=== PATIENT | male | born 1975 | race Caucasian/White ===

== ENCOUNTER 2017-04-09 10:45 | Outpatient (CLI) | payer MEDICAID ==
[2017-04-09 18:46] LABS: HCT - HEMATOCRIT 50.1 % (42.0-52.0); HGB - HEMOGLOBIN 16.9 g/dL (14.0-18.0); MEAN CORPUSCULAR HEMOGLOBIN 30.8 pg (27.0-31.0); MEAN CORPUSCULAR HGB CONC 33.8 g/dL (32.0-36.0); MEAN CORPUSCULAR VOLUME 91.1 fL (80.0-94.0); MEAN PLATELET VOLUME 7.8 fL (7.4-11.4); RED BLOOD COUNT 5.51 10^6/uL (4.70-6.10); RED CELL DISTRIBUTION WIDTH 13.9 % (12.0-15.0); WHITE BLOOD COUNT 4.9 x10^3/uL (4.8-10.8)
[2017-04-09 19:13] LABS: ALBUMIN/GLOBULIN RATIO 1.5 (1.0-2.2); BILIRUBIN,TOTAL 0.7 mg/dL (0.2-1.0); BUN - BLOOD UREA NITROGEN 18 mg/dL (6-20); CALCIUM 9.5 mg/dL (8.5-10.3); CARBON DIOXIDE - CO2 26 mmol/L (21-32); CHLORIDE 105 mmol/L (101-111); GFR - MDRD 83 (>89); GLUCOSE 80 mg/dL (70-100); POTASSIUM 4.2 mmol/L (3.5-5.0); SODIUM 140 mmol/L (135-145); TOTAL PROTEIN 7.6 g/dL (6.7-8.2)
[2017-04-11 15:11] LABS: TEST RESULT REPORT (())
== END 2017-04-09 10:46 | disposition home or self-care (01) ==
LOC: LAB.S 10:45
PROVIDERS: ATTEND Nurse Practitioner Family
DX: F10.10 Alcohol abuse, uncomplicated (principal); Z13.0 Encounter for screening for diseases of the blood and blood-forming organs and certain disorders involving the immune mechanism; Z20.2 Contact with and (suspected) exposure to infections with a predominantly sexual mode of transmission
CPT/HCPCS: 36415; 80053; 81599; 84443; 85025; 86695; 86696; 86780; 86803; 87389; 87491; 87591

== ENCOUNTER 2017-10-24 17:12 | Outpatient (CLI) | payer MEDICAID | END 2017-10-24 17:13 | disposition EMS.NT | LOC: EMS 17:12 | PROVIDERS: ATTEND Surgery | DX: S09.90XA Unspecified injury of head, initial encounter (principal); Y00.XXXA Assault by blunt object, initial encounter; Y92.009 Unspecified place in unspecified non-institutional (private) residence as the place of occurrence of the external cause ==

== ENCOUNTER 2017-11-12 08:00 | Outpatient (CLI) | payer MEDICAID, OTHER ==
[2017-11-12 15:06] LABS: T4 (THYROXINE) 5.98 ug/dL (6.09-12.23)
[2017-11-12 15:09] LABS: THYROID STIMULATING HORMONE 1.8 uIU/mL (0.34-5.60)
== END 2017-11-12 08:01 ==
LOC: LAB.R 08:00
PROVIDERS: ATTEND Emergency Medicine
DX: E03.9 Hypothyroidism, unspecified (principal)
CPT/HCPCS: 84436; 84443

== ENCOUNTER 2019-12-25 12:50 | Outpatient (CLI) | payer MEDICAID | END 2019-12-25 12:51 | disposition critical access hospital (66) | LOC: EMS 12:50 | PROVIDERS: ATTEND Surgery | DX: R42 Dizziness and giddiness (principal); R11.2 Nausea with vomiting, unspecified; R51 Headache; R53.1 Weakness | CPT/HCPCS: A0425; A0429; A0999 ==

== ENCOUNTER 2019-12-25 13:03 | Emergency (ER) | payer MEDICAID ==
--- NOTE | 2019-12-25 13:15 | ED Physician Documentation ---
History of Present Illness - Stated complaint Stated Complaint: HEADACHE/DIZZY - History obtained from History obtained from: Patient, EMS - History of Present Illness Timing: Today (43-year-old gentleman presents by ambulance. He is somnolent so much of the history is from paramedics. Reportedly has been feeling nauseous and headachy for the last 8 hours or so. His roommate also had similar symptoms but declined transport. There was a concern about the catalytic propane heater in the house causing a carbon monoxide issue. Reportedly the patient would not let the paramedics in the house for unclear reasons though. Patient also took 2 Flexeril prior to arrival because he was feeling "tense" from his other symptoms.) Review of Systems Unable to obtain: Other (Somnolent) PD PAST MEDICAL HISTORY - Present Medications Home Medications: Ambulatory Orders Medication Instructions Recorded Confirmed Naloxone HCl [Narcan] 4 mg NS ONCE PRN #2 unit 12/25/19 - Allergies Allergies/Adverse Reactions: Allergies Allergy/AdvReac Type Severity Reaction Status Date / Time No Known Drug Allergies Allergy Verified 12/25/19 13:09 PD ED PE NORMAL - Vitals Vital signs reviewed: Yes - General General: Alert and oriented X 3, Other (He is awake and follows simple commands but is somnolent. He exhibits bruxism.) - HEENT HEENT: PERRL, EOMI - Neck Neck: Supple, no meningeal sign, No bony TTP - Cardiac Cardiac: RRR, No murmur - Respiratory Respiratory: No respiratory distress, Clear bilaterally - Abdomen Abdomen: Normal bowel sounds, Soft, Non tender - Derm Derm: Normal color, Warm and dry - Extremities Extremities: No edema, No calf tenderness / cord - Neuro Neuro: Alert and oriented X 3, No motor deficit, No sensory deficit, Normal speech Eye Opening: To Voice Motor: Obeys Commands Verbal: Confused GCS Score: 13 Results - Vitals Vitals: Vital Signs - 24 hr 12/25/19 12/25/19 13:09 14:55 Temperature 98.3 C H 36.6 C Heart Rate 72 59 L Respiratory 16 17 Rate Blood Pressure 133/79 H 119/84 H O2 Saturation 99 100 Oxygen O2 Source Room air - Labs Labs: Laboratory Tests 12/25/19 12/25/19 12/25/19 13:20 13:20 13:20 WBC 9.4 RBC 5.15 Hgb 15.5 Hct 45.1 MCV 87.6 MCH 30.1 MCHC 34.4 RDW 12.7 Plt Count 275 MPV 9.1 Neut # (Auto) 7.5 H Lymph # (Auto) 1.2 L Ware # (Auto) 0.5 Eos # (Auto) 0.1 Baso # (Auto) 0.1 Absolute Nucleated RBC 0.00 Nucleated RBC % 0.0 VBG Total Hgb 16.1 VBG Oxyhemoglobin 94 VBG Carboxyhemoglobin 1.1 VBG Methemoglobin 0.3 Sodium 141 Potassium 4.0 Chloride 107 Carbon Dioxide 27 Anion Gap 7.0 BUN 19 Creatinine 0.8 Estimated GFR (MDRD) 106 Glucose 111 H Calcium 9.3 Total Bilirubin 0.3 AST 22 ALT 20 Alkaline Phosphatase 63 Total Protein 7.1 Albumin 4.2 Globulin 2.9 Albumin/Globulin Ratio 1.4 Lipase 30 Urine Opiates Screen Ur Oxycodone Screen Urine Methadone Screen Ur Propoxyphene Screen Ur Barbiturates Screen Ur Tricyclics Screen Ur Phencyclidine Scrn Ur Amphetamine Screen U Methamphetamines Scrn U Benzodiazepines Scrn Urine Cocaine Screen U Cannabinoids Screen Ethyl Alcohol < 5.0 12/25/19 14:35 WBC RBC Hgb Hct MCV MCH MCHC RDW Plt Count MPV Neut # (Auto) Lymph # (Auto) Ware # (Auto) Eos # (Auto) Baso # (Auto) Absolute Nucleated RBC Nucleated RBC % VBG Total Hgb VBG Oxyhemoglobin VBG Carboxyhemoglobin VBG Methemoglobin Sodium Potassium Chloride Carbon Dioxide Anion Gap BUN Creatinine Estimated GFR (MDRD) Glucose Calcium Total Bilirubin AST ALT Alkaline Phosphatase Total Protein Albumin Globulin Albumin/Globulin Ratio Lipase Urine Opiates Screen POSITIVE H Ur Oxycodone Screen NEGATIVE Urine Methadone Screen NEGATIVE Ur Propoxyphene Screen NEGATIVE Ur Barbiturates Screen NEGATIVE Ur Tricyclics Screen NEGATIVE Ur Phencyclidine Scrn NEGATIVE Ur Amphetamine Screen POSITIVE H U Methamphetamines Scrn POSITIVE H U Benzodiazepines Scrn NEGATIVE Urine Cocaine Screen NEGATIVE U Cannabinoids Screen POSITIVE H Ethyl Alcohol PD MEDICAL DECISION MAKING - ED course ED course: 43-year-old gentleman presents with somnolence and feeling ill. Reportedly his roommate had the same and there was a concern for carbon monoxide. Work-up was negative including head CT, labs, carbon monoxide panel. He cleared his mental status while in the department, ambulating without difficulty. No meningismus or fever. High suspicion for illicit drugs causing this presentation as opposed to an acute medical illness. Social work saw the patient and actually arranged for him to go from here to detox. Reportedly his brother had questions about starting Suboxone in the department, but the patient is not enough of a state of withdrawal to started at this juncture. The detox facility wanted to clarify that the patient had no symptoms or findings consistent with coronavirus, there is no fevers, no cough, no symptoms that would be referrable to coronavirus. Departure - Departure Disposition: 01 Home, Self Care Clinical Impression: Confusion, Drug abuse Headache Qualifiers: Headache type: unspecified Headache chronicity pattern: acute headache Intractability: not intractable Qualified Code(s): R51 - Headache Condition: Good Record reviewed to determine appropriate education?: Yes Instructions: ED Drug Abuse General Prescriptions: Naloxone HCl [Narcan] 4 mg NS ONCE PRN #2 unit PRN Reason: drug overdose Comments: There is no evidence of a carbon monoxide causing any of your symptoms, that said, it does appear that your drug abuse probably caused some of your issues. I would recommend that you cease using all illegal drugs, they are bad for you. Return for new or worsening symptoms. Do not drive today.
[2019-12-25 13:27] LABS: BASOPHILS # (AUTO) 0.1 10^3/uL (0.0-0.1); BASOPHILS % (AUTO) 0.5 %; EOSINOPHILS # (AUTO) 0.1 10^3/uL (0.0-0.7); EOSINOPHILS % (AUTO) 0.7 %; HGB - HEMOGLOBIN 15.5 g/dL (14.0-18.0); LYMPHOCYTES # (AUTO) 1.2 10^3/uL (1.5-3.5); LYMPHOCYTES % (AUTO) 12.9 %; MEAN CORPUSCULAR HEMOGLOBIN 30.1 pg (27.0-31.0); MEAN CORPUSCULAR HGB CONC 34.4 g/dL (32.0-36.0); MEAN CORPUSCULAR VOLUME 87.6 fL (80.0-94.0); MEAN PLATELET VOLUME 9.1 fL (7.4-11.4); MONOCYTES # (AUTO) 0.5 10^3/uL (0.0-1.0); MONOCYTES % (AUTO) 5.5 %; NEUTROPHILS # (AUTO) 7.5 10^3/uL (1.5-6.6); NEUTROPHILS % (AUTO) 79.9 %; PLT - PLATELET COUNT 275 10^3/uL (130-450); RED BLOOD COUNT 5.15 10^6/uL (4.70-6.10); RED CELL DISTRIBUTION WIDTH 12.7 % (12.0-15.0); WHITE BLOOD COUNT 9.4 x10^3/uL (4.8-10.8)
[2019-12-25 13:44] LABS: ALBUMIN 4.2 g/dL (3.2-5.5); ALBUMIN/GLOBULIN RATIO 1.4 (1.0-2.2); ALKALINE PHOSPHATASE 63 IU/L (42-121); ALT ALANINE AMINOTRANSFERASE 20 IU/L (10-60); AST ASPARTATE AMINOTRANSFERASE 22 IU/L (10-42); BILIRUBIN,TOTAL 0.3 mg/dL (0.2-1.0); BUN - BLOOD UREA NITROGEN 19 mg/dL (6-20); CALCIUM 9.3 mg/dL (8.5-10.3); CARBON DIOXIDE - CO2 27 mmol/L (21-32); CHLORIDE 107 mmol/L (101-111); CREATININE 0.8 mg/dL (0.6-1.2); GLUCOSE 111 mg/dL (70-100); LIPASE 30 U/L (22-51); SODIUM 141 mmol/L (135-145); TOTAL PROTEIN 7.1 g/dL (6.7-8.2)
--- NOTE | 2019-12-25 13:50 | CT Report ---
Reason: AMS Procedure Date: 12/25/2019 Accession Number: [id number] / [id number] Procedure: CT - HEAD WO CPT Code: Final Report FULL RESULT: EXAM: CT HEAD EXAM DATE: 12/25/2019 01:32 PM. CLINICAL HISTORY: Acute mental state. COMPARISON: None. TECHNIQUE: Multiaxial CT images were obtained from the foramen magnum to the vertex. Reformats: Sagittal and coronal. IV contrast: None. In accordance with CT protocol optimization, one or more of the following dose reduction techniques were utilized for this exam: automated exposure control, adjustment of mA and/or KV based on patient size, or use of iterative reconstructive technique. FINDINGS: Parenchyma: No intraparenchymal hemorrhage. No evidence of mass, midline shift, or CT findings of infarction. Sexton-white differentiation is distinct. Extraaxial Spaces: Normal for age. No subdural or epidural collections identified. Ventricles: Normal in size and position. Sinuses and Orbits: Imaged paranasal sinuses, orbits, and mastoids show no significant abnormality. Bones: No evidence of fracture or calvarial defect. Other: None. IMPRESSION: Normal head CT. RADIA
[2019-12-25 14:39] LABS: MUDS CUTOFF CONCENTRATIONS CUTOFF CONC BELOW:
[2019-12-25 14:54] LABS: AMPHETAMINE SCREEN,URINE POSITIVE (NEGATIVE); BENZODIAZEPINES SCREEN, URINE NEGATIVE (NEGATIVE); COCAINE SCREEN URINE NEGATIVE (NEGATIVE); METHADONE SCREEN, URINE NEGATIVE (NEGATIVE); METHAMPHETAMINES SCREEN, URINE POSITIVE (NEGATIVE); OPIATE SCREEN, URINE POSITIVE (NEGATIVE); OXYCODONE SCREEN, URINE NEGATIVE (NEGATIVE); PROPOXYPHENE SCREEN, URINE NEGATIVE (NEGATIVE); TRICYCLIC ANTIDEPRESSANT,URINE NEGATIVE (NEGATIVE)
[2019-12-25 16:18] VITALS: BP 117/80
== END 2019-12-25 16:18 | disposition home or self-care (01) ==
LOC: EDUNIT# → ED 13:03
DX: R41.0 Disorientation, unspecified (principal); F19.10 Other psychoactive substance abuse, uncomplicated; R51 Headache
CPT/HCPCS: 36415; 70450; 80053; 80306; 80320; 82375; 83690; 85025; 99281; 99284

== ENCOUNTER 2021-06-13 17:44 | Emergency (ER) | payer MEDICAID ==
[2021-06-13 17:57] VITALS: BP 148/85
--- NOTE | 2021-06-13 18:10 | ED Physician Documentation ---
PD HPI SKIN - Stated complaint Stated Complaint: RT KNEE INFECTION - Chief complaint Chief Complaint: Wound - History obtained from History obtained from: Patient - History of Present Illness Timing - onset: How many days ago (few) Timing - duration: Days (few) Timing - details: Abrupt onset, Still present Location: RLE (anterior infrapatellar) Quality / character: Painful, Discolored (red), Swelling. No: Draining Associated symptoms: No: Fever, Myalgias Contributing factors: No: Insect bite /sting Similar symptoms before: Has not had sx before Review of Systems Constitutional: denies: Fever, Chills Neurologic: denies: Focal weakness, Numbness PD PAST MEDICAL HISTORY - Past Medical History Endocrine/Autoimmune: HyPOthyroidism, Other GI: None : None Psych: None Musculoskeletal: None - Past Surgical History Past Surgical History: No - Present Medications Home Medications: Ambulatory Orders Medication Instructions Recorded Confirmed Naloxone HCl [Narcan] 4 mg NS ONCE PRN #2 unit 12/25/19 Doxycycline Hyclate 100 mg PO BID 7 Days #14 cap 06/13/21 Mupirocin 2% Oint [Bactroban 2% 1 applic TOP TID #15 gm 06/13/21 Oint] - Allergies Allergies/Adverse Reactions: Allergies Allergy/AdvReac Type Severity Reaction Status Date / Time No Known Drug Allergies Allergy Verified 12/25/19 13:09 - Social History Does the pt smoke?: No Smoking Status: Never smoker Does the pt drink ETOH?: Yes - Immunizations Immunizations are current?: Yes PD ED PE NORMAL - Vitals Vital signs reviewed: Yes - General General: Alert and oriented X 3, No acute distress, Well developed/nourished - Derm Derm: Normal color, Warm and dry - Extremities Extremities: Other (right anterior lower leg in infrapatellar area with skin redness, small scabbed 2-3 mm lesion. Red with warmth, but no fluctuance. No effusion/tenderness of the knee joint nor prepatellar area itself. ) - Neuro Neuro: No motor deficit, No sensory deficit Results - Vitals Vitals: Vital Signs - 24 hr 06/13/21 17:55 Temperature 36.6 C Heart Rate 74 Respiratory 18 Rate Blood Pressure 148/85 H O2 Saturation 99 Oxygen O2 Source Room air PD MEDICAL DECISION MAKING - ED course Complexity details: considered differential (skin infection without abscess yet, but does have staph looking appearance. ), d/w patient Departure - Departure Disposition: 01 Home, Self Care Clinical Impression: Infection of knee Condition: Stable Record reviewed to determine appropriate education?: Yes Instructions: ED Staph Infec Abx Tx Only Prescriptions: Mupirocin 2% Oint [Bactroban 2% Oint] 1 applic TOP TID #15 gm Doxycycline Hyclate 100 mg PO BID 7 Days #14 cap Comments: Cleanse area with soap and water 2-3 times a day. You can also apply warm compresses to the area to help loosen the wound edge and see if it promotes drainage. Mupirocin antibiotic ointment after that to the area. Doxycycline antibiotic twice daily for the next 5 to 7 days till the seems fully cleared. Tylenol or ibuprofen as needed for pains. I would anticipate improvement over the next few days. Recheck if not better and return if worsening. Transmitted your prescriptions to [facility] in [place]. Discharge Date/Time: 06/13/21 18:35
[2021-06-13] MEDS ORDERED: MUPIROCIN 2% OINT 1 GM TOP STA (18:19)
[2021-06-13] MEDS ORDERED: DOXYCYCLINE 100 MG TABLET PO STA (18:19)
[2021-06-13] MEDS ORDERED: IBUPROFEN 600 MG TABLET PO STA (18:19)
== END 2021-06-13 18:35 | disposition home or self-care (01) ==
LOC: ED 17:44
DX: M00.9 Pyogenic arthritis, unspecified (principal)
CPT/HCPCS: 99282; 99283; A9270

== ENCOUNTER 2021-08-15 00:26 | Emergency (ER) | payer MEDICAID ==
[2021-08-15 00:36] VITALS: BP 127/86
[2021-08-15] MEDS ORDERED: BUFFERED LIDOCAINE 10 ML SYRINGE IU ONE (00:39)
[2021-08-15] MEDS ORDERED: BACITRACIN ZINC OINT 1 PACKET TOP STA (01:02)
--- NOTE | 2021-08-15 01:07 | ED Physician Documentation ---
PD HPI SKIN - Stated complaint Stated Complaint: R LEG INJ - Chief complaint Chief Complaint: Laceration - History obtained from History obtained from: Patient - Additional information Additional information: Patient comes emergency department chief complaint of right leg laceration after tripping over a lawnmower. Patient states he had an old lawnmower that he had dragged from the side of his yard and put out to get rid of. Patient states he forgot that he had moved the lawnmower and as he was running across his yard in the dark, he ran into the lawnmower and tripped over it. He struck his right issue Laud and edge of the lawnmower, he thinks, and realized that he had cut his leg. No other injuries or complaints. Patient states his last tetanus shot was a year and a half ago. Review of Systems Ten Systems: 10 systems reviewed and negative Constitutional: reports: Reviewed and negative Eyes: reports: Reviewed and negative Ears: reports: Reviewed and negative Nose: reports: Reviewed and negative Throat: reports: Reviewed and negative Cardiac: reports: Reviewed and negative Respiratory: reports: Reviewed and negative GI: reports: Reviewed and negative : reports: Reviewed and negative Skin: reports: Laceration (s) Musculoskeletal: reports: Reviewed and negative Neurologic: reports: Reviewed and negative Psychiatric: reports: Reviewed and negative Endocrine: reports: Reviewed and negative Immunocompromised: reports: Reviewed and negative PD PAST MEDICAL HISTORY - Past Medical History Endocrine/Autoimmune: HyPOthyroidism, Other GI: None : None Psych: None Musculoskeletal: None - Past Surgical History Past Surgical History: No - Present Medications Home Medications: Ambulatory Orders Medication Instructions Recorded Confirmed Naloxone HCl [Narcan] 4 mg NS ONCE PRN #2 unit 12/25/19 Doxycycline Hyclate 100 mg PO BID 7 Days #14 cap 06/13/21 Mupirocin 2% Oint [Bactroban 2% 1 applic TOP TID #15 gm 06/13/21 Oint] - Allergies Allergies/Adverse Reactions: Allergies Allergy/AdvReac Type Severity Reaction Status Date / Time No Known Drug Allergies Allergy Verified 08/15/21 00:32 - Social History Does the pt smoke?: No Smoking Status: Never smoker Does the pt drink ETOH?: Yes - Immunizations Immunizations are current?: Yes PD ED PE NORMAL - Vitals Vital signs reviewed: Yes - General General: Alert and oriented X 3, No acute distress, Well developed/nourished - HEENT HEENT: Atraumatic, PERRL, EOMI, Moist mucous membranes - Neck Neck: Supple, no meningeal sign - Cardiac Cardiac: Strong equal pulses - Respiratory Respiratory: No respiratory distress - Derm Derm: Normal color, Warm and dry, No rash, Other (2.5 cm linear laceration obliquely across right anterior tibial area. Bleeding controlled. No foreign body. No bony depression) - Extremities Extremities: No deformity, No edema, No calf tenderness / cord, Other (No bony depression.) - Neuro Neuro: Alert and oriented X 3, assembler bonding 2-12 intact, Normal speech, Other (Grossly intact.) - Psych Psych: Normal mood, Normal affect Results - Vitals Vitals: Vital Signs - 24 hr 08/15/21 00:31 Temperature 36.8 C Heart Rate 107 H Respiratory 18 Rate Blood Pressure 127/86 H O2 Saturation 100 Oxygen O2 Source Room air Procedures - Laceration (location) Right lower leg Length in cm: 2.5 Wound type: Linear, Into subcut fat, Clean Neurovascular status: Sensory intact, Motor intact Anesthesia: Lidocaine 2% with epi Wound preparation: Hibiclens, Irrigated copiously NS, Wound explored, To the base Skin layer closure: Nylon, Interrupted, Size #-0 - enter number (4.0), Sutures - enter # (5) Other: Patient tolerated well, No complications, Neurovascular intact, Dressing applied, Tetanus UTD PD MEDICAL DECISION MAKING - ED course Complexity details: considered differential, d/w patient ED course: Laceration was repaired as above. We have discussed wound care at home, as well as the need to have sutures removed in 7 days. Discussed symptoms which would indicate infection and should prompt immediate reevaluation. Departure - Departure Disposition: 01 Home, Self Care Clinical Impression: Laceration Condition: Stable Instructions: ED Laceration Ext Sutr Stap Tape Comments: Please keep the wound generally clean and dry. You may let water and soap run over the wound, but please do not rub, scrub, or immerse the wound until sutures are removed. The sutures should be kept in for about 7 days, After which time you should follow-up with your doctor or urgent care/walk-in clinic to have them removed. If you cannot be seen in any of these settings, you may return to the emergency department for wound check and suture removal. If prior to that time, you develop redness and thick, swollen skin that is spreading progressively away from your wound, or if the wound splits open and looks "mushy" then you should seek medical evaluation at that time for possible infection. Discharge Date/Time: 08/15/21 01:27
== END 2021-08-15 01:27 | disposition home or self-care (01) ==
LOC: ED 00:26
DX: S81.811A Laceration without foreign body, right lower leg, initial encounter (principal); W22.8XXA Striking against or struck by other objects, initial encounter; Y93.02 Activity, running; Y92.007 Garden or yard of unspecified non-institutional (private) residence as the place of occurrence of the external cause
CPT/HCPCS: 12001; 99283

== ENCOUNTER 2023-05-14 18:49 | Emergency (ER) | payer MEDICAID ==
[2023-05-14 19:08] VITALS: BP 129/76; O2SAT 97
--- NOTE | 2023-05-14 20:26 | ED Physician Documentation ---
PD HPI SKIN - Stated complaint Stated Complaint: SCALP INFECTION - Chief complaint Chief Complaint: Wound - History obtained from History obtained from: Patient - Additional information Additional information: 47-year-old male presents by private vehicle from home for evaluation of the wound on his scalp that has been present for several days. Patient states that previously there seem to be a pouch on the back of his head, and recently it became more painful and it started draining. He is concerned because the wound is close to his brain and he wanted to be evaluated. Denies fevers or chills, headaches, vision changes, any other complaints at this time. Review of Systems Constitutional: denies: Fever, Chills Eyes: denies: Loss of vision, Decreased vision, Photophobia Skin: reports: Lesions. denies: Rash, Abrasion (s), Laceration (s) Neurologic: denies: Generalized weakness, Focal weakness, Numbness, Difficulty speaking, Near syncope, Confused, Altered mental status, Headache, Head injury PD PAST MEDICAL HISTORY - Past Medical History Endocrine/Autoimmune: HyPOthyroidism, Other GI: None : None Psych: None Musculoskeletal: None - Past Surgical History Past Surgical History: No - Present Medications Home Medications: Ambulatory Orders Medication Instructions Recorded Confirmed Doxycycline Hyclate 100 mg PO BID #14 tab 05/14/23 - Allergies Allergies/Adverse Reactions: Allergies Allergy/AdvReac Type Severity Reaction Status Date / Time No Known Drug Allergies Allergy Verified 05/14/23 19:00 - Social History Does the pt smoke?: No Smoking Status: Never smoker Does the pt drink ETOH?: Yes - Immunizations Immunizations are current?: Yes PD ED PE NORMAL - Vitals Vital signs reviewed: Yes - General General: Alert and oriented X 3, No acute distress, Well developed/nourished - HEENT HEENT: Atraumatic, PERRL, EOMI, Other (wound on occipital scalp) - Neck Neck: Supple, no meningeal sign - Cardiac Cardiac: RRR - Abdomen Abdomen: Soft, Non tender, Non distended - Derm Derm: Warm and dry, Other (infected cystic lesion on occipital scalp with purulent drainage) - Extremities Extremities: No deformity, No tenderness to palpate, Normal ROM s pain - Neuro Neuro: Alert and oriented X 3, die maker apprentice 2-12 intact, No motor deficit, Normal speech - Psych Psych: Normal mood, Normal affect Results - Vitals Vitals: Vital Signs - 24 hr 05/14/23 18:57 Temperature 36.7 C Heart Rate 75 Respiratory 16 Rate Blood Pressure 129/76 O2 Saturation 97 Oxygen O2 Source Room air PD Medical Decision Making - ED course Complexity details: re-evaluated patient, considered differential, d/w patient ED course: Well-appearing patient with cystic lesion on his posterior scalp that appears to have superimposed infection. Wound is already open to the surface and purulent material is able to be expressed with light pressure. No indication for further incision and drainage. Patient counseled to avoid manipulation of the infected area and to apply warm compresses several times daily. He was counseled to keep it clean dry dressing over the area to avoid worsening infection. Antibiotics sent to pharmacy of choice. Patient counseled that he may need to have cyst removed in the future once infection is controlled. He was referred to primary care for follow up. Clean bandage applied to scalp prior to DC Departure - Departure Disposition: 01 Home, Self Care Clinical Impression: Scalp cyst Cellulitis Qualifiers: Site of cellulitis: head Qualified Code(s): L03.811 - Cellulitis of head [any part, except face] Condition: Stable Instructions: Cellulitis Dc Prescriptions: Doxycycline Hyclate 100 mg PO BID #14 tab Comments: WEAR A CLEAN DRESSING WHEN WEARING A HAT OR COVERING YOUR HEAD. AVOID SQUEEZING OR MANIPULATING THE AREA. YOU MAY APPLY WARM COMPRESSES TO THE AREA TO HELP EXPRESS ANY PUS. FOLLOW UP WITH PRIMARY CARE PHYSICIAN. TAKE ALL ANTIBIOTICS. Forms: PCP List Discharge Date/Time: 05/14/23 20:46
== END 2023-05-14 20:46 | disposition home or self-care (01) ==
LOC: ED 18:49
DX: L03.811 Cellulitis of head [any part, except face] (principal)
CPT/HCPCS: 99282; 99283

== ENCOUNTER 2024-01-17 16:41 | Outpatient (CLI) | payer MEDICAID ==
--- NOTE | 2024-01-18 14:55 | XRAY Report ---
PROCEDURE: Tib/Fib RT INDICATIONS: RIGHT LEG CELLULITIS TECHNIQUE: 2 views of the tibia and fibula were acquired. COMPARISON: None. FINDINGS: Bones: No fractures or dislocations. No suspicious bony lesions. No osseous erosions. Soft tissues: No suspicious soft tissue calcifications or masses. Route soft tissue prominence. IMPRESSION: No visualized acute fracture or dislocation. However, occult injury cannot be excluded. Recommend gary rt interval imaging follow-up in 7-10 days as clinically indicated for additional evaluation. No suspicious osseous lesions. Reviewed by: Lorraine Pérez MD on 01/18/2024 2:54 PM PDT Approved by: Lorraine Pérez MD on 01/18/2024 2:54 PM PDT Station ID: [id number]
== END 2024-01-17 23:59 | disposition home or self-care (01) ==
LOC: DI.S 16:41
PROVIDERS: ATTEND Emergency Medicine
DX: L03.115 Cellulitis of right lower limb (principal)

== ENCOUNTER 2024-01-17 17:20 | Outpatient (CLI) | payer MEDICAID | END 2024-01-17 22:23 | disposition critical access hospital (66) | LOC: EMS 17:20 | DX: T24.001A Burn of unspecified degree of unspecified site of right lower limb, except ankle and foot, initial encounter (principal); X08.8XXA Exposure to other specified smoke, fire and flames, initial encounter; R53.83 Other fatigue; R11.0 Nausea | CPT/HCPCS: A0425; A0429; A0999 ==

== ENCOUNTER 2024-01-17 17:55 | Emergency (ER) | payer MEDICAID ==
[2024-01-17 18:34] LABS: BASOPHILS # (AUTO) 0.1 10^3/uL (0.0-0.1); EOSINOPHILS # (AUTO) 0.1 10^3/uL (0.0-0.7); HCT - HEMATOCRIT 40.6 % (42.0-52.0); HGB - HEMOGLOBIN 13.2 g/dL (14.0-18.0); LYMPHOCYTES % (AUTO) 14.5 %; MEAN CORPUSCULAR HGB CONC 32.5 g/dL (32.0-36.0); MEAN CORPUSCULAR VOLUME 89.2 fL (80.0-94.0); MEAN PLATELET VOLUME 10.2 fL (7.4-11.4); MONOCYTES # (AUTO) 0.8 10^3/uL (0.0-1.0); MONOCYTES % (AUTO) 10.9 %; NEUTROPHILS % (AUTO) 71.3 %; PLT - PLATELET COUNT 204 10^3/uL (130-450); RED BLOOD COUNT 4.55 10^6/uL (4.70-6.10); RED CELL DISTRIBUTION WIDTH 13.1 % (12.0-15.0)
[2024-01-17] MEDS: cefTRIAXone 1 GM VIAL IVP STA (18:35)
[2024-01-17] MEDS: SULFAMETH/TRIMETH DS 800/160 MG TABLET PO STA (18:35)
[2024-01-17 18:53] LABS: ALBUMIN 4.1 g/dL (3.2-5.5); ALBUMIN/GLOBULIN RATIO 1.4 (1.0-2.2); BILIRUBIN,TOTAL 0.6 mg/dL (0.2-1.0); CALCIUM 9.3 mg/dL (8.5-10.3); CREATININE 0.9 mg/dL (0.6-1.3); TOTAL PROTEIN 7.1 g/dL (6.4-8.9)
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
[2024-01-17 20:03] VITALS: BP 108/74; O2SAT 100
== END 2024-01-17 19:15 | disposition home or self-care (01) ==
LOC: EDUNIT# → ED 17:55
DX: L03.115 Cellulitis of right lower limb (principal); T24.001A Burn of unspecified degree of unspecified site of right lower limb, except ankle and foot, initial encounter; X03.8XXA Other exposure to controlled fire, not in building or structure, initial encounter
CPT/HCPCS: 36415; 80053; 85025; 96374; 99283; 99284; A9270